=== PATIENT | female | born 1990 | race African-American/Black ===

== ENCOUNTER 2021-03-16 21:17 | Inpatient (IN) | payer SELFPAY ==
[2021-03-16 22:45] VITALS: BMI 31.7
[2021-03-16] MEDS ORDERED: BUTORPHANOL TARTRATE 1 MG/ML VIAL IVPB ONE (22:45)
[2021-03-16] MEDS ORDERED: PROMETHAZINE HCL 25 MG/1 ML VIAL IVPB ONE (22:45)
[2021-03-16] MEDS ORDERED: ELECTROLYTE-148 SOLN 1,000 ML IV SCH (22:45)
[2021-03-16 22:48] LABS: BASO % 0.5 % (0-2.0); EOS % 2.7 % (0-4.5); HEMATOCRIT 33.2 % (32.4-45.2); HEMOGLOBIN 11.6 GM/dL (10.7-15.3); LYMPH % 23.5 % (8-40); MCH 31.6 pg (25.7-33.7); MCHC 34.9 g/dl (32.0-36.0); MEAN CELL VOLUME 90.7 fl (80-96); MEAN PLT VOLUME 9.7 fl (7.5-11.1); MONO % 7.2 % (3.8-10.2); NEUT % 66.1 % (42.8-82.8); PLATELET COUNT 218 10^3/uL (134-434); RBC 3.66 M/mm3 (3.60-5.2); RDW 14.2 % (11.6-15.6); WHITE BLOOD COUNT 7.5 K/mm3 (4.0-10.0)
[2021-03-16 22:55] LABS: INR 0.99 (0.83-1.09); PROTHROMBIN TIME (PATIENT) 11.1 SEC (9.7-13.0)
[2021-03-16 22:58] LABS: ACTIVATED PTT 26.7 SECONDS (25.2-36.5)
[2021-03-16 23:11] LABS: BLOOD UREA NITROGEN 14.1 mg/dL (7-18); CALCIUM 8.8 mg/dL (8.5-10.1)
[2021-03-16 23:14] LABS: CREATININE 0.7 mg/dL (0.55-1.3)
[2021-03-17] MEDS ORDERED: BUTORPHANOL TARTRATE 1 MG/ML VIAL ONE ×2 (00:19)
[2021-03-17] MEDS ORDERED: PROMETHAZINE HCL 25 MG/1 ML VIAL ONE (00:19)
[2021-03-17] MEDS ORDERED: PCA PUMP NR ONE (01:47)
[2021-03-17] MEDS ORDERED: FENTANYL/BUPIVACAINE/NS/PF - PCEA - 50 ML DISP.SYRIN EP ONE (01:47)
[2021-03-17] MEDS ORDERED: NALOXONE HCL 0.4 MG/ML VIAL IVPUSH PRN (02:41)
[2021-03-17] MEDS ORDERED: FENTANYL/BUPIVACAINE/NS/PF - PCEA - 50 ML DISP.SYRIN EP SCH ×2 (02:45→03:05)
[2021-03-17] MEDS ORDERED: TERBUTALINE SULFATE 1 MG/1 ML VIAL SQ ONE (03:24)
[2021-03-17] MEDS ORDERED: PROPOFOL 20 ML ONE (03:27)
[2021-03-17] MEDS ORDERED: SUCCINYLCHOLINE CHLORIDE 200 MG/10 ML SYRINGE ONE (03:27)
[2021-03-17] MEDS ORDERED: ceFAZolin SODIUM 1 GM VIAL ONE ×3 (03:28→17:24)
[2021-03-17] MEDS ORDERED: SODIUM CHLORIDE 0.9% P/F 10 ML VIAL IJ ONE (03:28)
[2021-03-17] MEDS ORDERED: ePHEDrine SULFATE 50 MG/1 ML AMPULE ONE ×2 (03:30)
[2021-03-17] MEDS ORDERED: OXYTOCIN 10 UNIT/ML 10ML MDV ONE (03:59)
[2021-03-17] MEDS ORDERED: ONDANSETRON 4 MG/2 ML VIAL ONE (04:12)
[2021-03-17] MEDS ORDERED: KETOROLAC TROMETHAMINE 30 MG/1 ML VIAL ONE (04:12)
[2021-03-17] MEDS ORDERED: BENZOCAINE 28 GM HEMORRHOIDAL OINTMENT PR PRN (04:30)
[2021-03-17] MEDS ORDERED: IBUPROFEN 800 MG/8 ML IJ IVPB PRN (04:30)
[2021-03-17] MEDS ORDERED: METHYLERGONOVINE MALEATE 0.2 MG/1 ML AMP IM PRN (04:30)
[2021-03-17] MEDS ORDERED: diphenhydrAMINE HCL 25 MG CAPSULE (FP) PO PRN (04:30)
[2021-03-17] MEDS ORDERED: BENZOCAINE 20% 57 GM BOTTLE TP PRN (04:30)
[2021-03-17] MEDS ORDERED: WITCH HAZEL 50% (TUCKS) 40 PAD/JAR PAD TP PRN (04:30)
[2021-03-17] MEDS ORDERED: OXYTOCIN 20 UNITS in 0.9% NS 20 UNIT/1,000 ML INFUS.BAG IV SCH (04:30)
[2021-03-17] MEDS ORDERED: oxyCODONE HCL 5 MG TABLET PO PRN ×2 (04:30)
[2021-03-17] MEDS ORDERED: DEXTROSE 5%-LACTATED RINGERS 1,000 ML IV SCH (04:30)
[2021-03-17] MEDS ORDERED: ONDANSETRON 4 MG/2 ML VIAL IVPUSH PRN (04:50)
[2021-03-17] MEDS ORDERED: morphine SULFATE/PF 1 MG/2 ML (2cc Syringe - QUVA) EP ONE (04:50)
[2021-03-17] MEDS ORDERED: PHENYLEPHRINE HCL 10 MG/1 ML SINGLE DOSE VIAL ONE (05:35)
[2021-03-17 06:15] LABS: HEMATOCRIT 28.9 % (32.4-45.2); HEMOGLOBIN 9.7 GM/dL (10.7-15.3); MCH 31.2 pg (25.7-33.7); MCHC 33.4 g/dl (32.0-36.0); MEAN CELL VOLUME 93.5 fl (80-96); MEAN PLT VOLUME 9.6 fl (7.5-11.1); PLATELET COUNT 184 10^3/uL (134-434); RDW 14.6 % (11.6-15.6); WHITE BLOOD COUNT 14.3 K/mm3 (4.0-10.0)
[2021-03-17 06:17] LABS: CORD BASE EXCESS -8.4 mmol/L (0-2); CORD PCO2 51.4 mmHg (30-78); CORD pH 7.209 (7.14-7.44)
[2021-03-17] MEDS ORDERED: OXYTOCIN 20 UNITS in 0.9% NS 20 UNIT/1,000 ML INFUS.BAG IV ONE ×2 (06:17→07:45)
[2021-03-17 06:21] LABS: CORD HCO3 22.5 mmHg (20-29); CORD PCO2 72.2 mmHg (30-78); CORD pH 7.111 (7.14-7.44)
[2021-03-17] MEDS ORDERED: DEXTROSE 5%-WATER - 50 ML IVPB ONE ×2 (09:07→17:24)
[2021-03-17] MEDS: CEFAZOLIN 1 GM in DEXTROSE 5%-WATER - 50 ML IVPB SCH ×2 (09:16→17:31)
[2021-03-17] MEDS ORDERED: CEFAZOLIN 1 GM/D5W 50 ML IVPB SCH (10:00)
[2021-03-18] MEDS: SIMETHICONE 80 MG TAB.CHEW (FP) PO PRN ×4 (03:17→21:20)
[2021-03-18] MEDS: ACETAMINOPHEN 325 MG TABLET (FP) PO PRN (03:18)
[2021-03-18] MEDS ORDERED: BISACODYL 10 MG SUPP.RECT PR PRN (04:31)
[2021-03-18] MEDS: IBUPROFEN 600 MG TABLET (FP) PO PRN ×3 (09:08→21:19)
[2021-03-18] MEDS: ENOXAPARIN NA (PORCINE) 40 MG/0.4 ML DISP.SYRIN SQ SCH (09:09)
[2021-03-18 11:42] LABS: BASO % 0.3 % (0-2.0); HEMATOCRIT 26.3 % (32.4-45.2); HEMOGLOBIN 9.1 GM/dL (10.7-15.3); LYMPH % 17.5 % (8-40); MCH 32.2 pg (25.7-33.7); MCHC 34.5 g/dl (32.0-36.0); MEAN CELL VOLUME 93.3 fl (80-96); MEAN PLT VOLUME 9.1 fl (7.5-11.1); MONO % 8.9 % (3.8-10.2); NEUT % 72.3 % (42.8-82.8); PLATELET COUNT 184 10^3/uL (134-434); RBC 2.82 M/mm3 (3.60-5.2); RDW 15.3 % (11.6-15.6); WHITE BLOOD COUNT 9.3 K/mm3 (4.0-10.0)
[2021-03-19] MEDS: ACETAMINOPHEN 325 MG TABLET (FP) PO PRN ×4 (00:24→23:46)
[2021-03-19] MEDS: IBUPROFEN 600 MG TABLET (FP) PO PRN ×2 (06:28→14:43)
[2021-03-19] MEDS: SIMETHICONE 80 MG TAB.CHEW (FP) PO PRN ×2 (09:10→14:44)
[2021-03-19] MEDS: ENOXAPARIN NA (PORCINE) 40 MG/0.4 ML DISP.SYRIN SQ SCH (09:12)
[2021-03-19 10:08] LABS: POC NITRAZINE POS
[2021-03-19] MEDS ORDERED: SENNOSIDES/DOCUSATE COMBO (SENNA PLUS) TABLET (UD) PO PRN (22:00)
[2021-03-20] MEDS: IBUPROFEN 600 MG TABLET (FP) PO PRN (06:46)
[2021-03-20 07:16] LABS: BASO % 0.6 % (0-2.0); EOS % 6.5 % (0-4.5); HEMATOCRIT 27.8 % (32.4-45.2); HEMOGLOBIN 9.8 GM/dL (10.7-15.3); LYMPH % 30.7 % (8-40); MCH 32.4 pg (25.7-33.7); MCHC 35.1 g/dl (32.0-36.0); MEAN CELL VOLUME 92.3 fl (80-96); MEAN PLT VOLUME 8.4 fl (7.5-11.1); MONO % 7.6 % (3.8-10.2); NEUT % 54.6 % (42.8-82.8); PLATELET COUNT 240 10^3/uL (134-434); RBC 3.02 M/mm3 (3.60-5.2); RDW 14.6 % (11.6-15.6); WHITE BLOOD COUNT 6.6 K/mm3 (4.0-10.0)
[2021-03-20] MEDS: ACETAMINOPHEN 325 MG TABLET (FP) PO PRN (09:49)
[2021-03-20] MEDS: SIMETHICONE 80 MG TAB.CHEW (FP) PO PRN (09:50)
[2021-03-20 10:02] VITALS: BP 106/70; PULSE 81; TEMP 98.3
[2021-03-20] MEDS: ENOXAPARIN NA (PORCINE) 40 MG/0.4 ML DISP.SYRIN SQ SCH (10:12)
== END 2021-03-20 12:50 | disposition home or self-care (01) | DRG 540 ==
LOC: JLDR 21:17 → J3W 03-17 08:05
PROVIDERS: ADMIT Obstetrics & Gynecology; ATTEND Obstetrics & Gynecology
PROC: 10D00Z1 Extraction of Products of Conception, Low, Open Approach (ICD-10-PCS; principal; 2021-03-17)
DX: O76 Abnormality in fetal heart rate and rhythm complicating labor and delivery (principal); Z37.0 Single live birth; O34.219 Maternal care for unspecified type scar from previous cesarean delivery; Z3A.39 39 weeks gestation of pregnancy
CPT/HCPCS: 36415; 36600; 80048; 82803; 83986-QW; 85025; 85027; 85610; 85730; 86762; 86780; 86850; 86900; 86901; 87340; 88307-TC; C9803; U0003; U0005

== ENCOUNTER 2022-08-02 04:27 | Day surgery (SDC) | payer OTHER ==
[2022-08-01 15:19] VITALS: BMI 34.2
[2022-08-02] MEDS ORDERED: DOXYCYCLINE INJECTION 100 MG in DEXTROSE 5%-WATER 100 ML IVPB ONE (09:38)
[2022-08-02] MEDS ORDERED: MIDAZOLAM HCL 2 MG/2 ML SINGLE DOSE VIAL ONE (11:44)
[2022-08-02] MEDS ORDERED: PROPOFOL 20 ML ONE (11:44)
[2022-08-02] MEDS ORDERED: ONDANSETRON 4 MG/2 ML VIAL ONE (12:02)
[2022-08-02] MEDS ORDERED: KETOROLAC TROMETHAMINE 30 MG/1 ML VIAL ONE (12:02)
[2022-08-02] MEDS ORDERED: DEXAMETHASONE SOD PHOSPHATE 4 MG/1 ML VIAL ONE (12:02)
[2022-08-02] MEDS ORDERED: ONDANSETRON 4 MG/2 ML VIAL IVPUSH PRN (12:22)
[2022-08-02] MEDS ORDERED: oxyCODONE HCL 5 MG TABLET PO PRN (12:22)
[2022-08-02 14:48] VITALS: RESP 20
[2022-08-02 15:38] VITALS: BP 101/60; PULSE 72; TEMP 97.8
== END 2022-08-02 15:56 | disposition home or self-care (01) ==
LOC: JASU-SURG 04:27
PROVIDERS: ATTEND Student in an Organized Health Care Education/Training Program
PROC: 10D17ZZ Extraction of Products of Conception, Retained, Via Natural or Artificial Opening (ICD-10-PCS; principal; 2022-08-02 11:00)
DX: O03.4 Incomplete spontaneous abortion without complication (principal)
CPT/HCPCS: 81025; 88305-TC; 94760

== ENCOUNTER 2023-11-11 23:39 | Emergency (ER) | payer OTHER ==
[2023-11-11 23:44] VITALS: BP 106/53; PULSE 86; RESP 18; TEMP 98.2; BMI 35.5
[2023-11-12] MEDS ORDERED: ACETAMINOPHEN 500 MG TABLET (FP) ONE (00:24)
[2023-11-12] MEDS: ACETAMINOPHEN 325 MG TABLET (FP) PO ONE (00:25)
== END 2023-11-12 00:48 | disposition home or self-care (01) ==
LOC: JER 23:39
DX: O9A.211 Injury, poisoning and certain other consequences of external causes complicating pregnancy, first trimester (principal); S39.012A Strain of muscle, fascia and tendon of lower back, initial encounter; X50.0XXA Overexertion from strenuous movement or load, initial encounter; Z3A.13 13 weeks gestation of pregnancy
CPT/HCPCS: 99283-25

== ENCOUNTER 2024-05-07 06:10 | Inpatient (IN) | payer OTHER ==
[2024-05-07] MEDS: ELECTROLYTE-148 SOLN 500 ML IV ONE (06:45)
[2024-05-07 07:01] VITALS: BMI 39.4
[2024-05-07] MEDS: CITRIC ACID/SODIUM CITRATE 30 ML UNIT-DOSE CUP PO ONE (07:30)
[2024-05-07] MEDS ORDERED: ONDANSETRON 4 MG/2 ML VIAL ONE (07:49)
[2024-05-07] MEDS ORDERED: FENTANYL CITRATE/PF 50 MCG/ML VIAL ONE (07:50)
[2024-05-07] MEDS ORDERED: morphine SULFATE/PF 1 MG/2 ML (2cc Syringe - QUVA) ONE (07:50)
[2024-05-07] MEDS ORDERED: OXYTOCIN 10 UNITS/ML VIAL ONE ×2 (07:51→09:15)
[2024-05-07] MEDS ORDERED: DEXAMETHASONE SOD PHOSPHATE 4 MG/1 ML VIAL ONE (07:51)
[2024-05-07] MEDS ORDERED: KETOROLAC TROMETHAMINE 30 MG/1 ML VIAL ONE (07:51)
[2024-05-07] MEDS ORDERED: ONDANSETRON 4 MG/2 ML VIAL IVPUSH PRN (07:58)
[2024-05-07] MEDS ORDERED: ACETAMINOPHEN 325 MG TABLET (FP) PO PRN ×2 (07:58→09:50)
[2024-05-07] MEDS: ELECTROLYTE-148 SOLN 1,000 ML IV SCH (08:05)
[2024-05-07] MEDS ORDERED: CEFAZOLIN 3 GM in DEXTROSE 5%-WATER - 100 ML IVPB ONE ×2 (08:30→10:00)
[2024-05-07 09:40] LABS: CORD HCO3 24.7 mmHg (20-29); CORD PCO2 56.2 mmHg (30-78); CORD pH 7.261 (7.14-7.44)
[2024-05-07 09:42] LABS: CORD BASE EXCESS -1.7 mmol/L (0-2); CORD HCO3 25.9 mmHg (20-29); CORD PCO2 54.8 mmHg (30-78); CORD pH 7.293 (7.14-7.44)
[2024-05-07] MEDS ORDERED: METHYLERGONOVINE MALEATE 0.2 MG/1 ML AMP IM PRN (09:50)
[2024-05-07] MEDS ORDERED: OXYTOCIN 20 UNITS in 0.9% NS 20 UNIT/1,000 ML INFUS.BAG IV ONE (11:18)
[2024-05-07] MEDS ORDERED: IBUPROFEN 800 MG/8 ML IJ IVPB ONE (11:19)
[2024-05-07] MEDS: IBUPROFEN 800 MG/8 ML IJ IVPB PRN (11:24)
[2024-05-07] MEDS: OXYTOCIN 20 UNITS in 0.9% NS 20 UNIT/1,000 ML INFUS.BAG IV SCH (11:27)
[2024-05-07] MEDS: CEFAZOLIN 2 GM/D5W 2 GM/50 ML ML IVPB ONE (17:22)
[2024-05-07] MEDS: CEFAZOLIN 1 GM/D5W 1 GM/50 ML BAG IVPB ONE (17:22)
[2024-05-07] MEDS: CEFAZOLIN 3 GM in DEXTROSE 5%-WATER - 100 ML IVPB ONE (17:22)
[2024-05-07] MEDS: ACETAMINOPHEN 1000 MG/100 ML BAG IVPB PRN (21:35)
[2024-05-07] MEDS: SIMETHICONE 80 MG TAB.CHEW (FP) PO PRN (21:35)
[2024-05-08] MEDS: IBUPROFEN 600 MG TABLET (FP) PO PRN (06:35)
[2024-05-08 08:33] VITALS: RESP 18
[2024-05-08 09:15] LABS: BASO % 0.3 % (0-2.0); EOS % 1.1 % (0-4.5); HEMATOCRIT 30.6 % (32.4-45.2); HEMOGLOBIN 10.6 GM/dL (10.7-15.3); LYMPH % 23.8 % (8-40); MCH 32.3 pg (25.7-33.7); MCHC 34.8 g/dl (32.0-36.0); MEAN PLT VOLUME 9.6 fl (7.5-11.1); MONO % 6.1 % (3.8-10.2); NEUT % 68.7 % (42.8-82.8); PLATELET COUNT 220 10^3/uL (134-434); RBC 3.29 M/mm3 (3.60-5.2); RDW 14.7 % (11.6-15.6); WHITE BLOOD COUNT 9.3 K/mm3 (4.0-10.0)
[2024-05-08] MEDS: DIPHTH,PERTUSS(ACELL),TET 0.5 ML DISP.SYRIN IM ONE (09:42)
[2024-05-08] MEDS: FLU VACCINE (FLULAVAL) PF 45 MCG/0.5 ML SYRINGE 2024-2025 IM ONE (09:43)
[2024-05-08] MEDS ORDERED: BISACODYL 10 MG SUPP.RECT RC PRN (09:50)
[2024-05-08] MEDS: oxyCODONE HCL 5 MG TABLET PO PRN (21:28)
[2024-05-09] MEDS: oxyCODONE HCL 5 MG TABLET PO PRN (03:57)
[2024-05-09] MEDS: IBUPROFEN 600 MG TABLET (FP) PO PRN (07:02)
[2024-05-10 07:25] LABS: BASO % 0.4 % (0-2.0); EOS % 3.6 % (0-4.5); HEMATOCRIT 32.7 % (32.4-45.2); LYMPH % 31.1 % (8-40); MCH 31.3 pg (25.7-33.7); MCHC 33.7 g/dl (32.0-36.0); MEAN CELL VOLUME 92.7 fl (80-96); MEAN PLT VOLUME 8.7 fl (7.5-11.1); MONO % 8.5 % (3.8-10.2); NEUT % 56.4 % (42.8-82.8); PLATELET COUNT 271 10^3/uL (134-434); RBC 3.52 M/mm3 (3.60-5.2); RDW 15.3 % (11.6-15.6); WHITE BLOOD COUNT 6.3 K/mm3 (4.0-10.0)
[2024-05-10 10:04] VITALS: BP 102/66; PULSE 84; TEMP 97.6
== END 2024-05-10 14:40 | disposition home or self-care (01) | DRG 540 ==
LOC: JLDR 06:10 → J3W 12:04
PROVIDERS: ADMIT Obstetrics & Gynecology Obstetrics; ATTEND Obstetrics & Gynecology Obstetrics
PROC: 10D00Z1 Extraction of Products of Conception, Low, Open Approach (ICD-10-PCS; principal; 2024-05-07)
DX: O24.420 Gestational diabetes mellitus in childbirth, diet controlled (principal); O34.219 Maternal care for unspecified type scar from previous cesarean delivery; O69.81X0 Labor and delivery complicated by cord around neck, without compression, not applicable or unspecified; Z3A.39 39 weeks gestation of pregnancy; Z37.0 Single live birth
CPT/HCPCS: 36415; 36600; 82803; 82962; 85025; 86850; 86900; 86901; 88307-TC; 90656; 90715; 94010; G0008; J0131